=== PATIENT | female | born 1980 | race Caucasian/White ===

== ENCOUNTER → 2023-02-02 | Day surgery (SDC) | payer OTHER ==
[~2023-02-02] MED LIST: Acetaminophen/HYDROcodone 325-5 MG Tab PO ONE; Bupivacaine 0.5% 50 ML MDV ONE; Dexamethasone 4 MG/ML SDV ONE; Glycopyrrolate 0.2 MG/ML 5 ML MDV ONE; Indocyanine Green 25 MG SDV INJECT ONE; Ketorolac 30 MG/ML SDV ONE; Lactated Ringers 1,000 ML ONE; Lidocaine 1% with EPINEPHrine 1:100,000 50 ML MDV ONE; Neostigmine Methylsulfate 1 MG/ML 5 ML Syringe ONE; Ondansetron 4 MG/2 ML SDV ONE; Propofol 200 MG/20 ML SDV ONE; Rocuronium 50 MG/5 ML Vial ONE; Ropivacaine 40 ML, dexAMETHasone 8 MG, EPINEPHrine 0.4 MG, Sodium Chloride 0.9% 37.6 ML NERVRT SCH; Scopolamine 1.5 MG Transdermal Patch TOP ONE; Sodium Chloride 0.9% 1,000 ML IV SCH; Succinylcholine 200 MG/10 ML MDV ONE; ceFAZolin 2 GM in Premix Bag 1 BAG IV ONE; fentaNYL 250 MCG/5 ML SDV ONE; metroNIDAZOLE/Normal Saline 500 MG in Premix Bag 1 BAG IV ONE
[2023-02-02 06:49] LABS: ESTIMATED GFR 94 mL/min (>60)
== END ==
LOC: JP.SDS 06:01
PROVIDERS: ATTEND Surgery
DX: K81.1 Chronic cholecystitis (principal); K21.9 Gastro-esophageal reflux disease without esophagitis; F41.9 Anxiety disorder, unspecified; F32.A Depression, unspecified; F17.200 Nicotine dependence, unspecified, uncomplicated
CPT/HCPCS: 36415; 47562; 80053; 84703; 85027; 88304; A9270; J0171; J0330; J0690; J1100; J1885; J2405; J2704; J2710; J2795; J3010; J3490; J7030; J7120

== ENCOUNTER 2023-12-06 08:23 | Inpatient (IN) | payer OTHER ==
[2023-12-06 09:11] LABS: BASOPHILS ABSOLUTE AUTO 0.05 K/uL (0.00-0.10); BASOPHILS PERCENT AUTO 0.2 % (0.1-1.3); EOSINOPHILS PERCENT AUTO 0.1 % (0.0-5.4); HEMOGLOBIN 15.9 g/dL (11.2-15.5); IMMATURE GRAN ABSOLUTE AUTO 0.14 K/uL (0.00-0.23); IMMATURE GRAN PERCENT AUTO 0.6 % (0.0-0.7); LYMPHOCYTES ABSOLUTE AUTO 0.53 K/uL (0.8-3.3); LYMPHOCYTES PERCENT AUTO 2.4 % (11.4-47.7); MEAN CORPUSCULAR HEMOGLOBIN 33.8 pg (31.6-35.5); MEAN CORPUSCULAR HGB CONC 36.1 g/dL (31.6-35.5); MEAN CORPUSCULAR VOLUME 93.6 fL (81.4-99.0); MONOCYTES ABSOLUTE AUTO 1.01 K/uL (0.20-0.90); MONOCYTES PERCENT AUTO 4.6 % (3.3-12.6); NEUTROPHILS ABSOLUTE AUTO 20.19 K/uL (1.0-7.6); NEUTROPHILS PERCENT AUTO 92.1 % (40.0-78.1); PLATELET COUNT,PLT 281 K/uL (130-375); WHITE BLOOD CELL COUNT,WBC 21.9 K/uL (3.2-11.0)
[2023-12-06 09:12] LABS: EOSINOPHILS ABSOLUTE AUTO 0.02 K/uL (0.00-0.40)
[2023-12-06 09:31] LABS: APPEARANCE,URINE CLOUDY (CLEAR); BILIRUBIN,URINE NEGATIVE (NEGATIVE); COLOR,URINE YELLOW (YELLOW); GLUCOSE,URINE NEGATIVE (NEGATIVE); KETONES,URINE TRACE mg/dL (NEGATIVE); LEUKOCYTE ESTERASE,URINE MODERATE (NEGATIVE); NITRITE,URINE NEGATIVE (NEGATIVE); OCCULT BLOOD,URINE TRACE-LYSED (NEGATIVE); PH,URINE 6.5 (5.0-8.0); PROTEIN,URINE NEGATIVE (NEGATIVE); UROBILINOGEN,URINE 0.2 EU/dL (0.2-1.0)
[2023-12-06 09:37] LABS: A/G RATIO 0.9 (1.2-2.2); ALANINE AMINOTRANSFERASE,ALT 24 U/L (12-78); ALBUMIN 3.2 g/dL (3.4-5.0); ALKALINE PHOSPHATASE 99 U/L (46-116); ASPARTATE AMNIOTRANSFERASE,AST 22 U/L (15-37); BILIRUBIN TOTAL 1.1 mg/dL (0.2-1.0); BLOOD UREA NITROGEN,BUN 6 mg/dL (7-18); C-REACTIVE PROTEIN 11.45 mg/dL (<0.50); CALCIUM 7.8 mg/dL (8.5-10.1); CARBON DIOXIDE,CO2 29 mmol/L (21-32); CHLORIDE,CL 90 mmol/L (100-108); CREATININE 0.8 mg/dL (0.6-1.0); EST CRCL DRUG DOSING (CG) 87.27 mL/min; ESTIMATED GFR 93 mL/min (>60); GLUCOSE RANDOM 115 mg/dL (74-106); POTASSIUM,K 3.1 mmol/L (3.6-5.2); PROTEIN TOTAL,TP 6.7 g/dL (6.4-8.2); SODIUM,NA 128 mmol/L (140-148)
[2023-12-06 09:38] LABS: ANION GAP 12.1 mmol/L (5.0-14.0)
[2023-12-06] MEDS: Sodium Chloride 0.9% 1,000 ML IV ONE (09:44)
[2023-12-06] MEDS: Ondansetron 4 MG/2 ML SDV IVPUSH ONE (09:45)
[2023-12-06 09:47] LABS: AMORPHOUS SEDIMENT,URINE RARE; BACTERIA,URINE MODERATE; EPITHELIAL CELLS,URINE MANY; MUCUS,URINE NOT SEEN; RBC,URINE 0-5 (0-5)
[2023-12-06] MEDS: Ketorolac 30 MG/ML SDV IVPUSH ONE (09:48)
[2023-12-06] MEDS: Pantoprazole 40 MG Vial IVPUSH ONE (09:50)
[2023-12-06] MEDS: Sodium Chloride 0.9% 10 ML Syringe FLUSH PRN ×2 (09:51→10:02)
[2023-12-06] MEDS: Iopamidol 612 MG/ML 100 ML Bottle IV PRN (10:02)
[2023-12-06] MEDS: Sodium Chloride 0.9% 50 ML IV ONE (10:02)
[2023-12-06 10:35] LABS: AMPHETAMINES SCREEN, URINE NEGATIVE (NEGATIVE); BARBITURATE SCREEN,URINE NEGATIVE (NEGATIVE); BENZODIAZEPINES SCREEN,URINE PRESUMPTIVE POSITIVE (NEGATIVE); METHADONE SCREEN, URINE NEGATIVE (NEGATIVE); METHAMPHETAMINES SCREEN, URINE NEGATIVE (NEGATIVE); OXYCODONE SCREEN,URINE NEGATIVE (NEGATIVE); PROPOXYPHENE SCREEN,URINE NEGATIVE (NEGATIVE); THC SCREEN,URINE 50 NG/ML PRESUMPTIVE POSITIVE (NEGATIVE)
[2023-12-06] MEDS ORDERED: Naloxone 0.4 MG/ML SDV IVPUSH PRN (10:47)
[2023-12-06 11:05] LABS: INR 1.1; PTT,PARTIAL THROMBOPLSTIN TIME 27.3 sec (21.8-27.3)
[2023-12-06] MEDS: Piperacillin/Tazobactam 3.375 GM in Sodium Chloride 0.9% 50 ML IV ONE (11:48)
[2023-12-06] MEDS: HYDROmorphone 0.5 MG/0.5 ML Syringe IVPUSH PRN (11:56)
[2023-12-06] MEDS: Dextrose 5%-0.9% NaCl 1,000 ML IV SCH (13:23)
[2023-12-06 13:26] LABS: CORONAVIRUS COVID-19 NAA NEGATIVE (NEGATIVE); INFLUENZA A NAA NEGATIVE (NEGATIVE); INFLUENZA B NAA NEGATIVE (NEGATIVE); RESPIRATORY SYNCYTIAL VIR NAA NEGATIVE (NEGATIVE)
[2023-12-06] MEDS ORDERED: Acetaminophen 325 MG Tab PO PRN (14:40)
[2023-12-06] MEDS ORDERED: Sennosides/Docusate Sodium 50-8.6 MG Tab PO PRN (14:40)
[2023-12-06] MEDS ORDERED: Magnesium Hydroxide 400 MG/5 ML Susp 30 ML Cup PO PRN (14:40)
[2023-12-06] MEDS ORDERED: LORazepam 2 MG/ML SDV IVPUSH PRN (14:40)
[2023-12-06] MEDS ORDERED: Morphine 2 MG/ML SYRINGE IVPUSH PRN (14:40)
[2023-12-06] MEDS ORDERED: Piperacillin/Tazobactam 3.375 GM in Sodium Chloride 0.9% 50 ML IV SCH (15:00)
[2023-12-06] MEDS: Sodium Chloride 0.9% 1,000 ML IV SCH (15:27)
[2023-12-06] MEDS: HYDROmorphone 1 MG/ML Syringe IVPUSH PRN (15:27)
[2023-12-06] MEDS ORDERED: LORazepam 2 MG/ML SDV IV SCH (17:15)
[2023-12-06] MEDS ORDERED: LORazepam 1 MG Tab PO SCH (17:15)
[2023-12-06] MEDS: Piperacillin/Tazobactam/Dext 3.375 GM in Premix Bag 1 BAG IV SCH (17:25)
[2023-12-06] MEDS: Acetaminophen 1,000 MG in Premix Bag 1 BAG IV SCH (18:06)
[2023-12-06] MEDS: Potassium Chloride 10 MEQ in Premix Bag 1 BAG IV SCH (18:30)
[2023-12-06] MEDS: Magnesium Sulfate/Water 2 GM in Premix Bag 1 BAG IV SCH (18:31)
[2023-12-06] MEDS: Metoclopramide 10 MG Tab PO SCH (21:49)
[2023-12-07 05:11] LABS: HEMATOCRIT 41.1 % (34.3-46.0); MEAN CORPUSCULAR HEMOGLOBIN 33.7 pg (31.6-35.5); MEAN CORPUSCULAR HGB CONC 34.1 g/dL (31.6-35.5); MEAN CORPUSCULAR VOLUME 98.8 fL (81.4-99.0); RED BLOOD CELL COUNT 4.16 M/uL (3.77-5.24); WHITE BLOOD CELL COUNT,WBC 21.6 K/uL (3.2-11.0)
[2023-12-07 05:36] LABS: A/G RATIO 0.7 (1.2-2.2); ALANINE AMINOTRANSFERASE,ALT 40 U/L (12-78); ALBUMIN 2.5 g/dL (3.4-5.0); ALKALINE PHOSPHATASE 118 U/L (46-116); ASPARTATE AMNIOTRANSFERASE,AST 65 U/L (15-37); BILIRUBIN TOTAL 0.8 mg/dL (0.2-1.0); BLOOD UREA NITROGEN,BUN 8 mg/dL (7-18); C-REACTIVE PROTEIN 24.65 mg/dL (<0.50); CALCIUM 7.3 mg/dL (8.5-10.1); CARBON DIOXIDE,CO2 28 mmol/L (21-32); CHLORIDE,CL 101 mmol/L (100-108); CREATININE 0.8 mg/dL (0.6-1.0); EST CRCL DRUG DOSING (CG) 84.01 mL/min; ESTIMATED GFR 93 mL/min (>60); GLUCOSE RANDOM 93 mg/dL (74-106); MAGNESIUM 2.7 mg/dL (1.8-2.4); POTASSIUM,K 3.9 mmol/L (3.6-5.2); PROTEIN TOTAL,TP 5.9 g/dL (6.4-8.2); SODIUM,NA 136 mmol/L (140-148)
[2023-12-07 05:42] LABS: ANION GAP 10.9 mmol/L (5.0-14.0)
[2023-12-07] MEDS: Losartan 50 MG Tab PO SCH (08:35)
[2023-12-07] MEDS: FLUoxetine 20 MG Cap PO SCH (08:37)
[2023-12-07] MEDS: Hydrochlorothiazide 12.5 MG Cap PO SCH (08:37)
[2023-12-07] MEDS ORDERED: Non-Formulary Medication 1 Each (Losartan/Hydrochlorothiazide [Losartan-Hctz 50-12.5 Mg] 1 PO SCH (09:00)
[2023-12-07] MEDS: Enoxaparin 40 MG/0.4 ML Syringe SUBCUT SCH (09:40)
[2023-12-07] MEDS: Calcium Carbonate 500 MG Tab.Chew PO PRN (12:31)
[2023-12-07] MEDS: Dextrose 5%-Lactated Ringers 1,000 ML IV SCH (16:45)
[2023-12-07] MEDS: Acetaminophen 500 MG Tab PO SCH (23:45)
[2023-12-08 05:42] LABS: HEMATOCRIT 39.5 % (34.3-46.0); HEMOGLOBIN 13.1 g/dL (11.2-15.5); MEAN CORPUSCULAR HEMOGLOBIN 33.6 pg (31.6-35.5); MEAN CORPUSCULAR HGB CONC 33.2 g/dL (31.6-35.5); MEAN CORPUSCULAR VOLUME 101.3 fL (81.4-99.0); RED BLOOD CELL COUNT 3.9 M/uL (3.77-5.24); WHITE BLOOD CELL COUNT,WBC 20.2 K/uL (3.2-11.0)
[2023-12-08 06:15] LABS: A/G RATIO 0.6 (1.2-2.2); ALANINE AMINOTRANSFERASE,ALT 31 U/L (12-78); ALBUMIN 2.2 g/dL (3.4-5.0); ALKALINE PHOSPHATASE 95 U/L (46-116); ANION GAP 11.9 mmol/L (5.0-14.0); ASPARTATE AMNIOTRANSFERASE,AST 34 U/L (15-37); BILIRUBIN TOTAL 0.5 mg/dL (0.2-1.0); BLOOD UREA NITROGEN,BUN 13 mg/dL (7-18); CALCIUM 7.7 mg/dL (8.5-10.1); CARBON DIOXIDE,CO2 27 mmol/L (21-32); CHLORIDE,CL 103 mmol/L (100-108); CREATININE 1.1 mg/dL (0.6-1.0); ESTIMATED GFR 64 mL/min (>60); GLUCOSE RANDOM 97 mg/dL (74-106); MAGNESIUM 2.3 mg/dL (1.8-2.4); PHOSPHORUS 3.3 mg/dL (2.5-4.9); POTASSIUM,K 3.9 mmol/L (3.6-5.2); PROTEIN TOTAL,TP 5.7 g/dL (6.4-8.2); SODIUM,NA 138 mmol/L (140-148)
[2023-12-08] MEDS: Iopamidol 612 MG/ML 100 ML Bottle IV SCH (08:37)
[2023-12-08] MEDS: Sodium Chloride 0.9% 80 ML IV SCH (08:37)
[2023-12-08] MEDS: Sodium Chloride 0.9% 10 ML Syringe FLUSH ONE (08:37)
[2023-12-08] MEDS: Lactated Ringers 500 ML IV SCH (08:51)
[2023-12-08] MEDS: Fluconazole 100 MG Tab PO ONE (09:06)
[2023-12-08 11:40] LABS: INR 1.2; PROTHROMBIN TIME 11.9 sec (9.2-10.6)
[2023-12-08] MEDS: Ondansetron 4 MG/2 ML SDV IV PRN (12:04)
[2023-12-08] MEDS: Pantoprazole 40 MG Vial IVPUSH SCH (12:04)
[2023-12-08] MEDS ORDERED: Sodium Chloride 0.9% 1,000 ML IV SCH (13:00)
[2023-12-08] MEDS ORDERED: Flumazenil 0.1 MG/ML 5 ML MDV IVPUSH PRN (13:15)
[2023-12-08] MEDS ORDERED: Naloxone 0.4 MG/ML SDV IVPUSH PRN (13:15)
[2023-12-08] MEDS: Midazolam 1 MG/ML 5 ML SDV IVPUSH ONE (13:56)
[2023-12-08] MEDS: fentaNYL 100 MCG/2 ML SDV IVPUSH ONE (13:56)
[2023-12-08] MEDS: Lidocaine 1% 20 ML MDV INJECT ONE (15:22)
[2023-12-08] MEDS: Acyclovir 200 MG Cap PO PRN (20:06)
[2023-12-08] MEDS: Ondansetron 4 MG Tab.DIS PO PRN (20:06)
[2023-12-09 05:59] LABS: HEMATOCRIT 39.3 % (34.3-46.0); HEMOGLOBIN 12.9 g/dL (11.2-15.5); MEAN CORPUSCULAR HEMOGLOBIN 33.2 pg (31.6-35.5); MEAN CORPUSCULAR HGB CONC 32.8 g/dL (31.6-35.5); MEAN CORPUSCULAR VOLUME 101.3 fL (81.4-99.0); RED BLOOD CELL COUNT 3.88 M/uL (3.77-5.24); WHITE BLOOD CELL COUNT,WBC 10.8 K/uL (3.2-11.0)
[2023-12-09 06:26] LABS: A/G RATIO 0.6 (1.2-2.2); ALANINE AMINOTRANSFERASE,ALT 35 U/L (12-78); ALBUMIN 2.1 g/dL (3.4-5.0); ALKALINE PHOSPHATASE 95 U/L (46-116); ASPARTATE AMNIOTRANSFERASE,AST 37 U/L (15-37); BILIRUBIN TOTAL 0.5 mg/dL (0.2-1.0); BLOOD UREA NITROGEN,BUN 9 mg/dL (7-18); CALCIUM 7.9 mg/dL (8.5-10.1); CARBON DIOXIDE,CO2 30 mmol/L (21-32); CHLORIDE,CL 100 mmol/L (100-108); CREATININE 0.9 mg/dL (0.6-1.0); EST CRCL DRUG DOSING (CG) 74.67 mL/min; ESTIMATED GFR 81 mL/min (>60); GLUCOSE RANDOM 84 mg/dL (74-106); MAGNESIUM 1.9 mg/dL (1.8-2.4); PHOSPHORUS 2.7 mg/dL (2.5-4.9); PROTEIN TOTAL,TP 5.8 g/dL (6.4-8.2); SODIUM,NA 136 mmol/L (140-148)
[2023-12-09] MEDS: Potassium Chloride 20 MEQ Tab.ER PO SCH (11:36)
[2023-12-10 05:12] LABS: HEMATOCRIT 37.5 % (34.3-46.0); HEMOGLOBIN 12.5 g/dL (11.2-15.5); MEAN CORPUSCULAR HEMOGLOBIN 33.1 pg (31.6-35.5); MEAN CORPUSCULAR HGB CONC 33.3 g/dL (31.6-35.5); MEAN CORPUSCULAR VOLUME 99.2 fL (81.4-99.0); RED BLOOD CELL COUNT 3.78 M/uL (3.77-5.24)
[2023-12-10 05:33] LABS: A/G RATIO 0.6 (1.2-2.2); ALANINE AMINOTRANSFERASE,ALT 25 U/L (12-78); ALBUMIN 1.9 g/dL (3.4-5.0); ALKALINE PHOSPHATASE 88 U/L (46-116); ASPARTATE AMNIOTRANSFERASE,AST 20 U/L (15-37); BILIRUBIN TOTAL 0.4 mg/dL (0.2-1.0); BLOOD UREA NITROGEN,BUN 8 mg/dL (7-18); C-REACTIVE PROTEIN 20.11 mg/dL (<0.50); CALCIUM 7.9 mg/dL (8.5-10.1); CARBON DIOXIDE,CO2 29 mmol/L (21-32); CHLORIDE,CL 102 mmol/L (100-108); CREATININE 0.7 mg/dL (0.6-1.0); EST CRCL DRUG DOSING (CG) 96.01 mL/min; ESTIMATED GFR 109 mL/min (>60); GLUCOSE RANDOM 96 mg/dL (74-106); MAGNESIUM 1.6 mg/dL (1.8-2.4); PHOSPHORUS 2.7 mg/dL (2.5-4.9); POTASSIUM,K 3.1 mmol/L (3.6-5.2); PROTEIN TOTAL,TP 5.3 g/dL (6.4-8.2); SODIUM,NA 137 mmol/L (140-148)
[2023-12-10 05:44] LABS: ANION GAP 9.1 mmol/L (5.0-14.0)
[2023-12-10] MEDS ORDERED: Acetaminophen/HYDROcodone 325-7.5 MG Tab PO PRN (08:32)
[2023-12-10] MEDS: Magnesium Sulfate/Water 2 GM in Premix Bag 1 BAG IV ONE (09:24)
[2023-12-10] MEDS: Potassium Chloride 20 MEQ Tab.ER PO SCH (09:25)
[2023-12-10] MEDS: Ketorolac 30 MG/ML SDV IVPUSH SCH (09:27)
[2023-12-11 05:27] LABS: HEMATOCRIT 38.1 % (34.3-46.0); MEAN CORPUSCULAR HEMOGLOBIN 33.2 pg (31.6-35.5); MEAN CORPUSCULAR HGB CONC 34.1 g/dL (31.6-35.5); MEAN CORPUSCULAR VOLUME 97.4 fL (81.4-99.0); RED BLOOD CELL COUNT 3.91 M/uL (3.77-5.24); WHITE BLOOD CELL COUNT,WBC 7.7 K/uL (3.2-11.0)
[2023-12-11 06:04] LABS: A/G RATIO 0.5 (1.2-2.2); ALANINE AMINOTRANSFERASE,ALT 20 U/L (12-78); ALBUMIN 1.9 g/dL (3.4-5.0); ALKALINE PHOSPHATASE 89 U/L (46-116); ASPARTATE AMNIOTRANSFERASE,AST 15 U/L (15-37); BILIRUBIN TOTAL 0.4 mg/dL (0.2-1.0); BLOOD UREA NITROGEN,BUN 8 mg/dL (7-18); C-REACTIVE PROTEIN 9.84 mg/dL (<0.50); CALCIUM 8.2 mg/dL (8.5-10.1); CARBON DIOXIDE,CO2 26 mmol/L (21-32); CHLORIDE,CL 99 mmol/L (100-108); CREATININE 0.7 mg/dL (0.6-1.0); EST CRCL DRUG DOSING (CG) 96.01 mL/min; ESTIMATED GFR 109 mL/min (>60); GLUCOSE RANDOM 79 mg/dL (74-106); MAGNESIUM 1.7 mg/dL (1.8-2.4); PHOSPHORUS 2.1 mg/dL (2.5-4.9); POTASSIUM,K 3.6 mmol/L (3.6-5.2); PROTEIN TOTAL,TP 5.6 g/dL (6.4-8.2); SODIUM,NA 133 mmol/L (140-148)
[2023-12-11 06:13] LABS: ANION GAP 11.6 mmol/L (5.0-14.0)
[2023-12-11] MEDS ORDERED: Sodium Phosphate 15 mMole/5 ML SDV IV ONE (07:00)
[2023-12-11] MEDS: Magnesium Sulfate/Water 2 GM in Premix Bag 1 BAG IV ONE (08:43)
[2023-12-11] MEDS ORDERED: Sodium Chloride 0.9% 10 ML Syringe FLUSH PRN (09:57)
[2023-12-11] MEDS: Iopamidol 612 MG/ML 100 ML Bottle IV SCH (10:04)
[2023-12-11] MEDS: Sodium Chloride 0.9% 100 ML IV SCH (10:04)
[2023-12-11] MEDS: Sodium Phosphate 30 MMOLE in Sodium Chloride 0.9% 250 ML IV ONE (11:56)
[2023-12-11] MEDS ORDERED: oxyCODONE 5 MG Tab PO PRN (13:35)
[2023-12-11] MEDS ORDERED: Acetaminophen 325 MG Tab PO SCH (14:00)
[2023-12-11] MEDS: Enoxaparin 40 MG/0.4 ML Syringe SUBCUT SCH (14:46)
[2023-12-11] MEDS: Acetaminophen 500 MG Tab PO SCH (14:46)
[2023-12-11] MEDS: Amoxicillin/Clavulanate K 875-125 MG Tab PO SCH (17:38)
[2023-12-11] MEDS: Melatonin 3 MG Tab PO PRN (22:05)
[2023-12-12] MEDS: Pantoprazole 40 MG Tab.CR PO SCH (09:30)
[2023-12-12 10:53] LABS: CALCIUM 8.1 mg/dL (8.5-10.1); CREATININE 0.6 mg/dL (0.6-1.0); EST CRCL DRUG DOSING (CG) 112.01 mL/min; MAGNESIUM 1.7 mg/dL (1.8-2.4); PHOSPHORUS 3.4 mg/dL (2.5-4.9); POTASSIUM,K 3.8 mmol/L (3.6-5.2)
[2023-12-12 10:56] LABS: HEMATOCRIT 36.8 % (34.3-46.0); HEMOGLOBIN 12.8 g/dL (11.2-15.5); MEAN CORPUSCULAR HEMOGLOBIN 33.7 pg (31.6-35.5); MEAN CORPUSCULAR HGB CONC 34.8 g/dL (31.6-35.5); MEAN CORPUSCULAR VOLUME 96.8 fL (81.4-99.0); RED BLOOD CELL COUNT 3.8 M/uL (3.77-5.24)
[2023-12-12 11:02] LABS: ANION GAP 6.7 mmol/L (5.0-14.0)
== END 2023-12-12 12:49 | disposition home or self-care (01) | DRG 392 ==
LOC: JP.ED 08:23 → JP.ICU 12:20
PROVIDERS: ADMIT Hospitalist; ATTEND Internal Medicine
DX: K57.20 Diverticulitis of large intestine with perforation and abscess without bleeding (principal); E87.1 Hypo-osmolality and hyponatremia; N39.0 Urinary tract infection, site not specified; I10 Essential (primary) hypertension; F32.A Depression, unspecified; G47.30 Sleep apnea, unspecified; E87.6 Hypokalemia; F90.9 Attention-deficit hyperactivity disorder, unspecified type; K21.9 Gastro-esophageal reflux disease without esophagitis; G43.909 Migraine, unspecified, not intractable, without status migrainosus; F41.9 Anxiety disorder, unspecified; F10.90 Alcohol use, unspecified, uncomplicated; E83.42 Hypomagnesemia; Z90.49 Acquired absence of other specified parts of digestive tract; Z97.5 Presence of (intrauterine) contraceptive device; Z79.51 Long term (current) use of inhaled steroids; Z79.2 Long term (current) use of antibiotics; Z79.899 Other long term (current) drug therapy; Z98.890 Other specified postprocedural states; Z87.891 Personal history of nicotine dependence; Z11.52 Encounter for screening for COVID-19
CPT/HCPCS: 0241U; 36415; 49405; 49405-26; 74177; 74177-26; 77012; 77012-26; 80048; 80053; 80305-QW; 81001; 81025; 82272; 83690; 83735; 84100; 85025; 85027; 85610; 85730; 86140; 87040; 87046; 87077; 87493; 87899; 89055; 93005; 93010; 96361; 96365; 96375; 99223; 99231; 99232; 99238; 99285; 99285-25; A9270-GY; C1729; C1769; C9113; J0131; J1170; J1650; J1885; J2250; J2405; J2543; J3010; J3475; J3480; J3490; J7030; J7050; J7120; J7121; Q0162; Q9967

== ENCOUNTER 2023-12-27 17:13 | Inpatient (IN) | payer OTHER ==
[2023-12-27 18:06] LABS: CORONAVIRUS COVID-19 NAA NEGATIVE (NEGATIVE); INFLUENZA A NAA NEGATIVE (NEGATIVE); INFLUENZA B NAA NEGATIVE (NEGATIVE); RESPIRATORY SYNCYTIAL VIR NAA NEGATIVE (NEGATIVE)
[2023-12-27] MEDS ORDERED: Ondansetron 4 MG/2 ML SDV IV PRN (18:31)
[2023-12-27] MEDS ORDERED: Ondansetron 4 MG Tab.DIS PO PRN (18:31)
[2023-12-27] MEDS: Sodium Chloride 0.9% 1,000 ML IV SCH (19:36)
[2023-12-27] MEDS: Piperacillin/Tazobactam 3.375 GM in Sodium Chloride 0.9% 50 ML IV SCH (19:43)
[2023-12-27] MEDS ORDERED: Acyclovir 200 MG Cap PO PRN (20:20)
[2023-12-27] MEDS: Potassium Chloride 20 MEQ Tab.ER PO SCH (20:50)
[2023-12-27] MEDS: Magnesium Oxide 400 MG Tab PO SCH (20:50)
[2023-12-27] MEDS: Magnesium Oxide 400 MG Tab ONE (23:55)
[2023-12-27] MEDS: Potassium Chloride 20 MEQ Tab.ER ONE (23:55)
[2023-12-28 05:47] LABS: HEMATOCRIT 40.8 % (34.3-46.0); MEAN CORPUSCULAR HEMOGLOBIN 32.6 pg (31.6-35.5); MEAN CORPUSCULAR HGB CONC 34.3 g/dL (31.6-35.5); MEAN CORPUSCULAR VOLUME 95.1 fL (81.4-99.0); RED BLOOD CELL COUNT 4.29 M/uL (3.77-5.24); WHITE BLOOD CELL COUNT,WBC 9.1 K/uL (3.2-11.0)
[2023-12-28] MEDS: Amphetamine/Dextroamphetamine Salts 10 MG Tab PO SCH (05:59)
[2023-12-28 06:10] LABS: CALCIUM 8.6 mg/dL (8.5-10.1); CREATININE 0.9 mg/dL (0.6-1.0); EST CRCL DRUG DOSING (CG) 74.67 mL/min; MAGNESIUM 1.8 mg/dL (1.8-2.4)
[2023-12-28] MEDS: FLUoxetine 20 MG Cap PO SCH (08:17)
[2023-12-28] MEDS: Losartan 50 MG Tab PO SCH (08:18)
[2023-12-28] MEDS: Hydrochlorothiazide 12.5 MG Cap PO SCH (08:19)
[2023-12-28] MEDS: Piperacillin/Tazobactam/Dext 3.375 GM in Premix Bag 1 BAG IV SCH (10:30)
[2023-12-28] MEDS: Enoxaparin 40 MG/0.4 ML Syringe SUBCUT SCH (12:24)
[2023-12-28] MEDS: Dextrose 5%-Lactated Ringers 1,000 ML IV SCH (13:50)
[2023-12-28] MEDS: Acetaminophen 325 MG Tab PO PRN (17:43)
[2023-12-28] MEDS: Ketorolac 15 MG/ML SDV IVPUSH PRN (23:42)
[2023-12-28] MEDS: Simethicone 125 MG Tab.Chew PO PRN (23:42)
[2023-12-29 06:26] LABS: HEMATOCRIT 38.3 % (34.3-46.0); MEAN CORPUSCULAR HEMOGLOBIN 32.5 pg (31.6-35.5); MEAN CORPUSCULAR HGB CONC 33.9 g/dL (31.6-35.5); MEAN CORPUSCULAR VOLUME 95.8 fL (81.4-99.0); WHITE BLOOD CELL COUNT,WBC 9.6 K/uL (3.2-11.0)
[2023-12-29 06:44] LABS: CALCIUM 8.6 mg/dL (8.5-10.1); CREATININE 0.8 mg/dL (0.6-1.0); EST CRCL DRUG DOSING (CG) 84.01 mL/min; MAGNESIUM 1.5 mg/dL (1.8-2.4); PHOSPHORUS 2.7 mg/dL (2.5-4.9); POTASSIUM,K 4.1 mmol/L (3.6-5.2)
[2023-12-29 06:46] LABS: ANION GAP 10.1 mmol/L (5.0-14.0)
[2023-12-29] MEDS: Magnesium Sulfate/Water 2 GM in Premix Bag 1 BAG IV ONE (08:06)
== END 2023-12-29 18:35 | DRG 392 ==
LOC: JP.MS 17:13
PROVIDERS: ADMIT Hospitalist; ATTEND Hospitalist
DX: K57.20 Diverticulitis of large intestine with perforation and abscess without bleeding (principal); N17.9 Acute kidney failure, unspecified; I10 Essential (primary) hypertension; F32.A Depression, unspecified; G47.30 Sleep apnea, unspecified; K52.9 Noninfective gastroenteritis and colitis, unspecified; G43.909 Migraine, unspecified, not intractable, without status migrainosus; K21.9 Gastro-esophageal reflux disease without esophagitis; F41.9 Anxiety disorder, unspecified; D72.829 Elevated white blood cell count, unspecified; Z79.51 Long term (current) use of inhaled steroids; Z79.899 Other long term (current) drug therapy; Z79.2 Long term (current) use of antibiotics; Z87.440 Personal history of urinary (tract) infections; Z98.890 Other specified postprocedural states; Z90.49 Acquired absence of other specified parts of digestive tract
CPT/HCPCS: 0241U; 36415; 80048; 83735; 84100; 85027; 86140; 99222; 99232; 99239; A9270-GY; J1650; J1885; J2543; J3475; J3490; J7030; J7121

== ENCOUNTER 2024-05-13 11:39 | Emergency (ER) | payer OTHER ==
[2024-05-13 13:07] LABS: BASOPHILS PERCENT AUTO 0.2 % (0.1-1.3); EOSINOPHILS ABSOLUTE AUTO 0.05 K/uL (0.00-0.40); EOSINOPHILS PERCENT AUTO 0.6 % (0.0-5.4); HEMATOCRIT 45.4 % (34.3-46.0); HEMOGLOBIN 16.5 g/dL (11.2-15.5); IMMATURE GRAN ABSOLUTE AUTO 0.03 K/uL (0.00-0.23); IMMATURE GRAN PERCENT AUTO 0.4 % (0.0-0.7); LYMPHOCYTES PERCENT AUTO 7.2 % (11.4-47.7); MEAN CORPUSCULAR HEMOGLOBIN 32.9 pg (31.6-35.5); MEAN CORPUSCULAR HGB CONC 36.3 g/dL (31.6-35.5); MEAN CORPUSCULAR VOLUME 90.6 fL (81.4-99.0); MONOCYTES ABSOLUTE AUTO 0.55 K/uL (0.20-0.90); MONOCYTES PERCENT AUTO 6.6 % (3.3-12.6); NEUTROPHILS ABSOLUTE AUTO 7.13 K/uL (1.0-7.6); PLATELET COUNT,PLT 288 K/uL (130-375); RED BLOOD CELL COUNT 5.01 M/uL (3.77-5.24); WHITE BLOOD CELL COUNT,WBC 8.4 K/uL (3.2-11.0)
[2024-05-13 13:11] LABS: BASOPHILS ABSOLUTE AUTO 0.02 K/uL (0.00-0.10)
[2024-05-13] MEDS: Sodium Chloride 0.9% 1,000 ML IV ONE (13:11)
[2024-05-13] MEDS: Ondansetron 4 MG/2 ML SDV IVPUSH ONE (13:12)
[2024-05-13] MEDS: Sodium Chloride 0.9% 10 ML Syringe FLUSH PRN (13:13)
[2024-05-13 13:29] LABS: A/G RATIO 0.8 (1.2-2.2); ALANINE AMINOTRANSFERASE,ALT 114 U/L (12-78); ALBUMIN 3.5 g/dL (3.4-5.0); ALKALINE PHOSPHATASE 256 U/L (46-116); ANION GAP 10.8 mmol/L (5.0-14.0); ASPARTATE AMNIOTRANSFERASE,AST 198 U/L (15-37); BILIRUBIN TOTAL 1.3 mg/dL (0.2-1.0); BLOOD UREA NITROGEN,BUN 6 mg/dL (7-18); C-REACTIVE PROTEIN 0.56 mg/dL (<0.50); CALCIUM 8.7 mg/dL (8.5-10.1); CARBON DIOXIDE,CO2 29 mmol/L (21-32); CHLORIDE,CL 91 mmol/L (100-108); CREATININE 0.8 mg/dL (0.6-1.0); EST CRCL DRUG DOSING (CG) 83.13 mL/min; ESTIMATED GFR 93 mL/min (>60); GLUCOSE RANDOM 102 mg/dL (74-106); POTASSIUM,K 3.8 mmol/L (3.6-5.2); PROTEIN TOTAL,TP 7.8 g/dL (6.4-8.2); SODIUM,NA 127 mmol/L (140-148)
[2024-05-13 13:47] LABS: LYME AB IgG Negative (Negative)
[2024-05-13 13:48] LABS: LYME AB IgM Negative (Negative)
[2024-05-16 19:33] LABS: ANAPLASMA PHAGOCYTOPHILUM PCR Not Detected; BABESIA MICROTI BY PCR Not Detected; BABESIA SPECIES BY PCR Not Detected; EHRLICHIA CHAFFEENSIS BY PCR Not Detected; EHRLICHIA EWINGII/CANIS BY PCR Not Detected; EHRLICHIA MURIS-LIKE BY PCR Not Detected
== END 2024-05-13 15:27 | disposition home or self-care (01) ==
LOC: JP.ED 11:39
DX: E86.0 Dehydration (principal); R74.01 Elevation of levels of liver transaminase levels; I10 Essential (primary) hypertension; Z79.899 Other long term (current) drug therapy; Z90.49 Acquired absence of other specified parts of digestive tract; Z87.891 Personal history of nicotine dependence
CPT/HCPCS: 36415; 80053; 83605; 84145; 85025; 86140; 86618; 87040; 87468; 87469; 87484; 87798; 96361; 96374; 99283; 99284; J2405; J3490; J7030